=== PATIENT | female | born 1950 | race Caucasian/White ===

== ENCOUNTER 2018-09-19 01:16 | Outpatient (CLI) | payer MEDICARE, OTHER, SELFPAY ==
--- NOTE | 2018-09-19 14:25 | DI.RAD_ITS ---
SYMPTOMS/DIAGNOSIS: SCREENING FOR OSTEOPOROSIS IN MENOPAUSAL WOMAN, Z78.0 DEXA SCAN WITH TO: There are no prior comparison exams. The TO image shows no evidence of compression fractures. The bone mineral density measurements correspond to a total T score of -0.9, in the normal range. The bone mineral density measurements of the left hip correspond to a total T score of -0.7. The femoral neck T score is -1.3, in the mildly osteopenic range. The bone mineral density measurements of the left forearm correspond to a total T score of -2.3 and a T score in the distal third of -1.9, consistent with osteopenia. IMPRESSION: Osteopenia of the left hip and left forearm. Normal bone mineral density of the lumbar spine.
--- NOTE | 2018-09-19 15:17 | DI.MAMMO_ITS ---
SYMPTOMS/DIAGNOSIS: SCREENING BILATERAL SCREENING MAMMOGRAM: Mammograms were interpreted according to the usual protocol including computer analysis with CAD system, tomosynthesis and C view imaging. Comparison is made with exams from 2014 through 2017. The breasts are composed of heterogeneously dense fibroglandular tissue, breast density category C. No suspicious masses or suspicious microcalcifications are seen. There has been no significant change. IMPRESSION: Category 1C, negative mammogram. Yearly screening mammography is recommended. [facility] ASSESSMENT OF FINDINGS: Negative. Category 1. Patient will receive a letter notifying them of these results. Bi-RADS category C. The breasts are heterogeneously dense, which may obscure small masses.
== END 2018-09-19 01:36 ==
PROVIDERS: Visit Provider Obstetrics & Gynecology
DX: Z12.31 Encounter for screening mammogram for malignant neoplasm of breast (principal); M85.88 Other specified disorders of bone density and structure, other site; Z78.0 Asymptomatic menopausal state
CPT/HCPCS: 77063; 77067; 77080

== ENCOUNTER 2019-10-23 01:23 | Outpatient (CLI) | payer MEDICARE, OTHER, SELFPAY ==
--- NOTE | 2019-10-23 16:15 | DI.MAMMO_ITS ---
EXAM: MAMMO SCREENING CLINICAL HISTORY: SCREENING, Z12.31 TECHNIQUE: Mammograms were interpreted according to the usual protocol including computer analysis w [employer] CAD system, tomosynthesis and C-view imaging. COMPARISON: FINDINGS: The breasts are heterogeneously dense. No dominant mass or clumped microcalcification is identified in either breast. Current examination is compared with previous examinations including August 2018 and there has been no gross interval change in appearance comparison with previous studies. Conclus ion no specific evidence of malignancy at this time. Routine screening examinations are suggested at yearly intervals due to the family history of breast carcinoma. IMPRESSION: Category 1 breast density category C
== END 2019-10-23 01:43 ==
PROVIDERS: PCP Family Medicine; Visit Provider Family Medicine
DX: Z12.31 Encounter for screening mammogram for malignant neoplasm of breast (principal); R92.8 Other abnormal and inconclusive findings on diagnostic imaging of breast
CPT/HCPCS: 77063; 77067

== ENCOUNTER 2020-11-06 01:31 | Outpatient (CLI) | payer MEDICARE, OTHER, SELFPAY ==
--- NOTE | 2020-11-06 | DI.MAMMO_ITS ---
EXAM: MG MAMMO SCREENING CLINICAL HISTORY: SCREENING, Z12.31 TECHNIQUE: Mammograms were interpreted according to the usual protocol including computer analysis w [employer] CAD system, tomosynthesis and C-view imaging. COMPARISON: FINDINGS: The breasts are heterogeneously dense. No dominant mass or clumped microcalcification is identified in either breast. The current examination is compared with previous examinations including September 2019 and there has been no gross interval change in appearance in comparison with the prior studies. IMPRESSION: No specific evidence of malignancy at this time. Routine screening examinations are suggested at yea rly intervals due to the family history of breast carcinoma. BI-RADS Category 1 - Negative Breast Density - Category C - Heterogeneously dense
== END 2020-11-06 01:51 ==
PROVIDERS: PCP Family Medicine; Visit Provider Obstetrics & Gynecology
DX: Z12.31 Encounter for screening mammogram for malignant neoplasm of breast (principal); Z80.3 Family history of malignant neoplasm of breast
CPT/HCPCS: 77063; 77067

== ENCOUNTER 2021-06-12 10:39 | Outpatient (CLI) | payer MEDICARE, OTHER, SELFPAY ==
--- NOTE | 2021-06-12 09:15 | DI.RAD_ITS ---
Exam(s) XR KNEE RT 3V AP,LAT,CARINA EXAM: XR KNEE RT 3V AP,LAT,CARINA CLINICAL HISTORY: pain limited motion. TECHNIQUE: 2D digital imaging was performed. COMPARISON: No previous for comparison. FINDINGS: BONES: No acute fracture is present. No bony destructive lesion is seen. JOINTS: The patient has a right total knee replacement. No evidence of hardware failure. No joint e ffusion is seen. SOFT TISSUE: Normal. IMPRESSION: Right total knee replacement. DATA REPOSITORY: RADIATION DOSE DELIVERED:
== END 2021-06-12 10:40 | disposition home or self-care (01) ==
LOC: DIORS 10:39
PROVIDERS: PCP Family Medicine; Referring Provider Family Medicine; Visit Provider Student in an Organized Health Care Education/Training Program
DX: T84.84XA Pain due to internal orthopedic prosthetic devices, implants and grafts, initial encounter (principal); Z96.659 Presence of unspecified artificial knee joint; Z96.651 Presence of right artificial knee joint; M25.561 Pain in right knee
CPT/HCPCS: 73562; 99203

== ENCOUNTER → 2022-10-19 01:59 | Outpatient (CLI) | payer MEDICARE, OTHER, SELFPAY ==
--- NOTE | 2022-10-19 | DI.MAMMO_ITS ---
Exam(s) MAMMO SCREENING EXAM: MAMMO SCREENING CLINICAL HISTORY: SCREENING, Z12.31. TECHNIQUE: Bilateral full field digital CC and MLO mammographic images were obtained with 3D tomosyn thesis and utilizing computer aided detection (CAD). COMPARISON: Prior mammograms were reviewed. FINDINGS: There has been no significant change in the appearance and distribution of the fibroglandular tissue. There are no new spiculated masses nor malignant appearing microcalcification groups. There is no significant architectural distortion nor skin thickening-retraction. IMPRESSION: No radiographic evidence of malignancy. BI-RADS Category 1 - Negative Breast Density - Category C - Heterogeneously dense Breast density Category C or D implies that the patient has dense breast tissue. Dense breast tissue can make it harder to find cancer on a mammogram. Dense breast tissue is also associated with an incr eased risk of breast cancer. This information about the result of the mammogram report was provided to the patient to raise their awareness. Use this report when you speak with the patient about their risks for breast cancer, which includes their family history. At that time, you may recommend additional screening tests (Ultrasoun d or MRI) as these tests may add significant information. A negative radiographic report should not delay biopsy if a dominant or clinically suspicious mass is present. Up to ten percent of cancers are not identified on mammography. A negative report may reinforce clinical impression. Adenosis and dense breasts may obscure an underlying neoplasm. False positive reports average 6 to 10%. Patient will receive a letter notifying them of these results.
== END ==
PROVIDERS: PCP Family Medicine; Visit Provider Family Medicine
DX: Z12.31 Encounter for screening mammogram for malignant neoplasm of breast (principal); R92.8 Other abnormal and inconclusive findings on diagnostic imaging of breast
CPT/HCPCS: 77063; 77067

== ENCOUNTER 2023-03-09 10:37 | Outpatient (REF) | payer MEDICARE, SELFPAY ==
[2023-04-07 10:48] LABS: Fungus Smear No Fungi Seen
== END 2023-03-09 10:38 | disposition home or self-care (01) ==
LOC: NCHCN 10:37
PROVIDERS: PCP Family Medicine; Visit Provider Family Medicine
DX: R23.9 Unspecified skin changes (principal)
CPT/HCPCS: 87102; 87206

== ENCOUNTER 2023-04-13 09:23 | Outpatient (REF) | payer MEDICARE, SELFPAY ==
[2023-04-13 14:41] LABS: Anion Gap 5.6 mmol/L (3-11); BUN 20 mg/dL (7-18); CO2 29.4 mmol/L (21.0-32.0); CREATININE 0.8 mg/dL (0.55-1.02); Calcium 8.8 mg/dL (8.5-10.1); Calculated LDL 134 mg/dL (<100); Chloride 105 mmol/L (98-107); Cholesterol 210 mg/dL (<200); Estimated GFR 77.27 (mL/min/1.73m2); Glucose 132 mg/dL (74-106); HDL Cholesterol 58 mg/dL (40-60); Potassium 4.6 mmol/L (3.5-5.1); Sodium 140 mmol/L (136-145); Triglyceride 91 mg/dL (<150)
[2023-04-13 15:35] LABS: Hemoglobin A1C 6.4 % (<5.7)
== END 2023-04-13 09:24 | disposition home or self-care (01) ==
LOC: NCHCN 09:23
PROVIDERS: PCP Family Medicine; Visit Provider Family Medicine
DX: R73.01 Impaired fasting glucose (principal); E78.5 Hyperlipidemia, unspecified
CPT/HCPCS: 80048; 80061; 83036

== ENCOUNTER → 2023-05-09 13:38 | Outpatient (BNVA) | payer MEDICARE, SELFPAY | PROVIDERS: PCP Family Medicine; Referring Provider Family Medicine; Visit Provider Student in an Organized Health Care Education/Training Program | DX: Z47.1 Aftercare following joint replacement surgery (principal); Z96.651 Presence of right artificial knee joint | CPT/HCPCS: 99214 ==

== ENCOUNTER 2023-05-25 09:45 | Day surgery (SDC) | payer MEDICARE, SELFPAY ==
[2023-05-25] VITALS (9 sets, daily range): BP systolic 92–132; BP diastolic 46–78; PULSE 50–58; RESP 14–18; TEMP 36.1–36.6; O2SAT 94–98; BMI 27.9
--- NOTE | 2023-05-25 09:23 | ANES.PREOP_ITS ---
General Info Date of Service Date Performed: 05/25/23 Height: 5 ft 4 in Weight: 73.936 kg Body Mass Index (BMI): 27.9 Surgical Procedure: Operation Date: 05/25/23 11:55 Proposed Procedure Side Surgeon p Knee Arthroscopy Synovectomy Right Pj Peña MD Meds Allergies and Home Medications Allergies Allergy/AdvReac Type Severity Reaction Status Date / Time cat dander Allergy sneeze Verified 05/25/23 10:18 mold Allergy sneeze Verified 05/25/23 10:18 morphine Allergy itch Verified 05/25/23 10:18 wasp Allergy Severe Other (See Uncoded 05/25/23 10:18 Comment) Home Medication Medication Instructions Recorded calcium carbonate 500 mg-vitamin 1 ea PO DAILY 04/20/18 D3 5 mcg (200 unit) tablet (Os-Feliciano 500 + D3) citalopram 10 mg tablet (Celexa) 10 mg PO DAILY 04/20/18 glucosamine 1 ea PO DAILY 04/20/18 sulfate-methylsulfonylmethane 250 mg-250 mg capsule multivitamin (Daily Multiple 1 ea PO DAILY 04/20/18 tablet) acetaminophen 500 mg capsule 500 mg PO Q6H PRN 06/12/21 diphenhydramine 25 1 tab PO QHS PRN 06/12/21 mg-acetaminophen 500 mg tablet (Tylenol PM Extra Strength) atorvastatin 10 mg tablet (Lipitor) 20 mg PO DAILY 05/09/23 esmtukr-gonvmkiad-ofzbyc-QFS-ymwlr-sdkx-150hb 1 tab PO DAILY 05/09/23 250 mg-250 mg-120 mg tab trazodone 50 mg tablet 50 mg PO QHS PRN 05/09/23 Current Visit Medications: Current Medications Generic Name Dose Route Start Last Admin Trade Name Freq PRN Reason Stop Dose Admin Acetaminophen 1,000 mg 05/25/23 06:00 Acetaminophen 500 Mg Tab PO 05/25/23 16:00 PREOP TREV Celecoxib 400 mg 05/25/23 06:00 Celecoxib 200 Mg Cap PO 05/25/23 16:00 PREOP TREV Gabapentin 300 mg 05/25/23 06:00 Gabapentin 300 Mg Cap PO 05/25/23 16:00 PREOP TREV Ringer's Solution 1,000 mls @ 80 mls/hr 05/25/23 06:00 IV 06/23/23 23:59 INFUSION TREV Cefazolin Sodium/Dextrose 2 gm in 50 mls @ 100 mls/hr 05/25/23 06:00 Ancef Duplex IVPB 05/25/23 16:00 PREOP TREV IV Miscellaneous Supplies 1 each 05/25/23 06:00 Iv Access IV 06/23/23 23:59 DIRECTED TREV Sodium Chloride 0 ml 05/25/23 06:00 Normal Saline Flush 10 Ml Syr IV 06/23/23 23:59 PRN PRN Sodium Chloride 0 ml 05/25/23 06:00 Normal Saline 10 Ml Vial IJ 06/23/23 23:59 DIRECTED PRN Sterile Water 0 ml 05/25/23 06:00 Water,Injection,Sterile 10 Ml Vial IJ 06/23/23 23:59 DIRECTED PRN PFSH Active Problems Active Problems: Problem Status Onset Code History of total right knee replacement Z96.651 Crepitus of joint of right knee M23.8X1 Painful total knee replacement, right T84.84XA, Z96.651 Medical History Medical History (Updated 05/24/23 @ 11:47 by Ishmael Jorgensen) Depression High cholesterol Prediabetes Surgical History Surgical History (Updated 05/25/23 @ 10:18 by Marybel Easley RN) History of urologic surgery Aditya-Edwar Procedure Hx of elbow surgery right Hx of total knee arthroplasty right Hx of total knee arthroplasty Left Hx of tubal ligation Tobacco Smoking/Tobacco Use Status: Former Tobacco Use Alcohol Alcohol Intake: current Alcohol intake frequency: 0-2 drinks per day Alcohol t ype: wine Substance Use Substance use: Never Substance use type: does not use Vital Signs and Lab Results Lab Results Blood Type / Crossmatch: No Data to Display Complete Blood Count: No Data to Display Complete Metabolic Panel: No Data to Display Liver Function Panel: No Data to Display Coagulation Panel: No Data to Display Cardiac Panel: No Data to Display Arterial Blood Gas: No Data to Display Venous Blood Gas: No Data to Display Pancreas Panel: No Data to Display Thyroid Panel: No Data to Display Infectious Disease: No Data to Display Blood Cultures: No Data to Display Toxicology Panel: No Data to Display Anesthesia Assessment and Plan Anesthesia History Personal History: No History of Anesthesia Complications Family History: No Family History of Anesthesia Complications Exercise Tolerance Exercise Tolerance: Metabolic Equivalents>4 Cardiac & Pulmonary Exam Cardiac Exam: Normal S1/S2 Heart Sounds Pulmonary Exam: Clear Bilateral Breath Sounds Implantable Cardiac Device Does patient have a Pacemaker or an ICD?: No Airway Exam Known Difficult Airway: No Mallampati Class: 3 Mouth Opening: Narrow (< 3cm) Thyromental Distance: Greater than 3 cm Neck Range of Motion: Full ROM Neck Circumference: Normal Teeth Condition: Normal Dentition ASA Classification ASA Score: ASA 2 Emergency Case?: No NPO Status NPO Status: NPO Clears >2 hours, Solids >8 hours Anesthesia Plan Resuscitation Status: Full Code Anesthesia Technique: General Anesthesia Airway Planned: LMA Monitors Used: Standard Monitors Preoperative Comments:: 73 yo female for knee scope. Sig PMHx: preDM (last A1c 6.4%), depression (citalopram), former smoker 10/1972,
[2023-05-25] MEDS: Lactated Ringers 1,000 ML 80 ML IV (10:19)
[2023-05-25] MEDS: Acetaminophen 500 MG TAB 1000 MG PO (10:23)
[2023-05-25] MEDS: Gabapentin 300 MG CAP PO (10:23)
--- NOTE | 2023-05-25 10:51 | W.PREOPHP ---
Assessment and Plan Assessment and plan (1) History of total right knee replacement: Status: Acute (2) Painful total knee replacement, right: Status: Acute (3) Crepitus of joint of right knee: Status: Acute Assessment and plan: Kely is an active 73-year-old female with ongoing pain, crepitus, stiffness about the right knee after knee replacement. She is here today for knee arthroscopic synovectomy. I reviewed this once with her already. I once again discussed that to include technical features as well as the risk, not limited to continued symptoms, recurrence, infection. Despite these risk, she elects to proceed. History of Present Illness History of Present Illness Chief Complaint: Right knee arthrofibrosis and pain Narrative: Kely is a 73-year-old female who has ongoing pain and stiffness about the right knee after bilateral knee replacement performed the [facility]. Please see the previous office note for complete detailed history. She is here today for arthroscopic synovectomy. She reports no changes to her medical history. No chest pain or shortness of breath. Review of Systems All systems reviewed & are unremarkable except as noted in HPI and below PFSH All Active Problems History of total right knee replacement (Acute) Crepitus of joint of right knee (Acute) Painful total knee replacement, right (Acute) Medical History Depression High cholesterol Prediabetes Surgical History History of urologic surgery Aditya-Edwar Procedure Hx of elbow surgery right Hx of total knee arthroplasty right Hx of total knee arthroplasty Left Hx of tubal ligation Social History Smoking/Tobacco Use Status: Former Tobacco Use Quit Date: 10/24/72 Smoking risk assessment performed?: Yes Alcohol Intake: current Alcohol Intake frequency: 0-2 drinks per day Alcohol type: wine Drug use: Never Substance use type: does not use Housing: house Do you feel safe at home: Yes Do you feel safe in your relationship?: Yes Meds Allergies and Home Medications Allergies Allergy/AdvReac Type Severity Reaction Status Date / Time cat dander Allergy sneeze Verified 05/25/23 10:18 mold Allergy sneeze Verified 05/25/23 10:18 morphine Allergy itch Verified 05/25/23 10:18 wasp Allergy Severe Other (See Uncoded 05/25/23 10:18 Comment) Home Medications Medication Instructions Recorded Confirmed Type calcium carbonate 500 mg-vitamin 1 ea PO DAILY 04/20/18 05/25/23 History D3 5 mcg (200 unit) tablet (Os-Feliciano 500 + D3) citalopram 10 mg tablet (Celexa) 10 mg PO DAILY 04/20/18 05/25/23 History glucosamine 1 ea PO DAILY 04/20/18 05/25/23 History sulfate-methylsulfonylmethane 250 mg-250 mg capsule multivitamin (Daily Multiple 1 ea PO DAILY 04/20/18 05/25/23 History tablet) acetaminophen 500 mg capsule 500 mg PO Q6H PRN 06/12/21 05/24/23 History diphenhydramine 25 1 tab PO QHS PRN 06/12/21 05/25/23 History mg-acetaminophen 500 mg tablet (Tylenol PM Extra Strength) atorvastatin 10 mg tablet (Lipitor) 20 mg PO DAILY 05/09/23 05/25/23 History litijmc-qeeirqzgi-bjzhcy-DCX-zihaf-gboa-150hb 1 tab PO DAILY 05/09/23 05/25/23 History 250 mg-250 mg-120 mg tab trazodone 50 mg tablet 50 mg PO QHS PRN 05/09/23 05/25/23 History Exam Resp Effort & Inspection: normal respiratory effort Auscultation: clear to auscultation bilaterally Cardio Rate: regular rate Rhythm: regular rhythm Results Last Vital Signs Temp 36.6 C 05/25/23 10:03 Pulse 58 L 05/25/23 10:03 Resp 16 05/25/23 10:03 BP 132/76 05/25/23 10:03 Pulse Ox 98 05/25/23 10:03
[2023-05-25] MEDS: Celecoxib 200 MG CAP 400 MG PO (10:58)
--- NOTE | 2023-05-25 11:19 | PDOC.DSDIS_ITS ---
Date of service: 05/25/23 Time of Service: 11:19 Discharge Plan Disposition Patient Disposition: Home Condition: Good Discharge Details Reason For Visit: R knee arthroscopy Attending Provider: Pj Peña Primary Care Provider: Alexa Riojas Home Meds and New Rx's Prescriptions: New hydrocodone-acetaminophen 5-325 mg tablet 1 tab PO Q6H PRN (Reason: pain) Qty: 6 0RF acetaminophen 500 mg tablet 1,000 mg PO TID Qty: 90 0RF ibuprofen 600 mg tablet 600 mg PO TID PRN (Reason: pain) Qty: 90 0RF Continued trazodone 50 mg tablet 50 mg PO QHS PRN fbrd-ir-tgk-ZYJ-acpo-bbw-150hb 250-250-120 mg tablet 1 tab PO DAILY multivitamin [Daily Multiple] 1 EACH tablet 1 ea PO DAILY citalopram [Celexa] 10 MG tablet 10 mg PO DAILY calcium carbonate-vitamin D3 [Os-Feliciano 500 + D3] 1 EACH tablet 1 ea PO DAILY glucosamine sulfate-msm 1 EACH capsule 1 ea PO DAILY atorvastatin [Lipitor] 10 mg tablet 20 mg PO DAILY Discontinued acetaminophen 500 mg capsule 500 mg PO Q6H PRN diphenhydramine-acetaminophen [Tylenol PM Extra Strength] 25-500 mg tablet 1 tab PO QHS PRN Discharge Instructions Stand Alone Forms: Anesthesia Discharge Inst., Johnny Escobedo ([facility]), [facility] Knee Arthroscopy Referrals: Pj Peña MD [ [facility]] - 06/06/23 1:15 pm Equipment/Supplies: Partial Weight Bearing Crutches Activity:: Activity as Tolerated Remove Dressings/Wound Care:: 72 hours Shower/Bathe:: 72 hours Diet:: As Tolerated Discharge Orders Discharge Orders: Discharge Order (Routine); Ordered 05/25/23 Ordered By: Ajay Sosa DS: Diagnosis Discharge Diagnosis (1) History of total right knee replacement: Status: Acute (2) Painful total knee replacement, right: Status: Acute (3) Crepitus of joint of right knee: Status: Acute
[2023-05-25] MEDS: ceFAZolin 2 GM/50 ML BAG IVPB (11:24)
[2023-05-25] MEDS: EPINEPHrine 30 MG/30 ML VIAL (11:50)
[2023-05-25] MEDS: Bupivacaine 0.5% Pres-Free 30 ML VIAL (11:51)
[2023-05-25] MEDS: fentaNYL 100 MCG/2 ML VIAL IVP (12:44)
--- NOTE | 2023-05-25 13:29 | W.ANESPOSTOP ---
Postoperative Evaluation Date, Time and Location Date Performed: 05/25/23 Time Performed: 13:38 Patient Location: Day Surgery Unit Vital Signs Most Recent Imported Vital Signs: Most Recent Vital Signs Temp Pulse Resp BP Pulse Ox 36.2 C L 52 L 16 132/75 94 05/25/23 13:12 05/25/23 13:12 05/25/23 13:12 05/25/23 13:12 05/25/23 13:12 Pain Score Most Recent Pain Score: Most Recent Pain Score Pain Level 2 05/25/23 13:12 Assessment Mental Status: Awake (Alert & Oriented to Patient Baseline) Airway and Respiratory Function: Patent airway with normal (patient baseline) respiratory exam Cardiovascular Function: Hemodynamically Stable Hydration Status: Adequately Hydrated Nausea & Vomiting: No Nausea or Vomiting Pain: Pain is tolerable per patient Peripheral Nerve Block: Patient did not receive a nerve block
--- NOTE | 2023-05-25 16:26 | ROE_ITS ---
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 Nonoperative measures were exhausted but disability due to lack of motion persisted. I discussed knee arthroscopy with synovectomy with maniuplation with the patient. I reviewed the risks of the procedure to include, but not limited to, bleeding, infection, pain, continued stiffness, recurrence, blood clot. Despite these risks, the patient elected to proceed. Findings: There is abundant scar tissue seen throughout the knee. There was some pedunculated scar tissue adhesions seen around the patella which were easily displaced with and without the patellar femoral joint. Additionally, there were dense adhesions seen within the suprapatellar pouch. Additionally over the medial and lateral aspect of the knee there was some interposed soft tissue. Procedure Description: Kely was greeted in the preoperative holding area where the correct side was identified and marked. The consent was reviewed with the patient and signed. The history and physical was updated. All questions were answered. She was taken back to the operating room. The patient was placed into the supine position on the operating room table. All bony prominences were well padded. Prophylactic antibiotics in the form of Cefazolin were administered. The right leg was then prepped with Chloraprep and draped in a standard fashion with stockinette and extremity drape. A timeout to confirm correct identity, side and site, procedure, allergies, anesthesia, and medical concerns was performed. The leg was placed into a pneumatic leg miller, [id number]. A standard lateral portal was made at the lateral border of the patella tendon in line with the inferior pole of the patella, soft spot. The skin and deep tissue was incised sharply and the blunt trochar was inserted atraumatically. At this point had visualization of the femoral component. A superolateral portal was then established with spinal needle localization just superior and lateral to the patella. A knife was taken down through the skin and soft tissue to enter the knee joint. Immediately there was notable scar tissue seen around the patella with pedunculated tissue adjacent patella which was easily displaced into the patellofemoral joint. Starting in the superior compartment above the femoral component and anterior to the femur I released all scarring between the anterior femoral synovium and the overlying extensor mechanism. This was taken through all of any noticeable scar tissue until the superior patellar pouch was fully released and mobile. This resection was carried out mostly with electrocautery as well as shaver. In doing this release there was a very tight band of scar tissue which was seen from the suprapatellar pouch extending to the medial gutter. This was released and resected. Once this was released fully from lateral to medial superiorly I then continue working down the lateral gutter. All scar tissue in the lateral gutter was released so there is normal space and movement between the capsular tissues and the edge of the femoral component and femur. This was taken down through the lateral gutter such that I was able to identify the polyethylene to its posterior corner. Once again, all scar tissue in this area was resected so the polyethylene was easily visible and there is no interposed tissue in the back or the polyethylene was identified. There was notable scar tissue in this region which was interposed into the joint space. I then continue to work anteriorly. To continue the synovectomy from the lateral compartment to the anterior compartment into the medial compartment, I placed a medial portal under spinal needle localization. Once this was in place it became another working portal and I continued the synovectomy through the anterior compartment to the medial compartment. Once again, I freed up the medial gutter so I was able to visualize the polyethylene from the anterior posterior margins as there was notable bands of scar tissue seen interposed between the femoral component and the polyethylene. There is no interposed tissue after full synovectomy was performed. Adhesions between the capsule and the femur were released. This was continued up the medial gutter until it met u p with the releases performed previously in the superior compartment. Any remnant scar tissue from around the patella was then removed with a shaver and electrocautery. The arthroscope was brought back into the suprapatellar pouch and the leg was in full extension. The knee was thoroughly irrigated with the arthroscopic fluid on high flow and pressure. Inflow was stopped and excess fluid was removed. The wounds were closed with 4-0 Nylon. 0.25% ropivacaine was injected around the portal sites and into the knee. The wounds were dressed with Xeroform, 4x4 gauze, ABD pad, Kerlix and an STEPHANIE wrap. A cryo-cuff was applied. The patient tolerated the procedure well and was returned to the Same Day Surgery area in a stable condition suffering no known complication..
== END 2023-05-25 14:35 | disposition home or self-care (01) ==
PROVIDERS: PCP Family Medicine; Visit Provider Student in an Organized Health Care Education/Training Program
PROC: (CPT 29870; principal; 2023-05-25 11:45)
DX: Z96.651 Presence of right artificial knee joint (principal); T84.84XA Pain due to internal orthopedic prosthetic devices, implants and grafts, initial encounter; R73.03 Prediabetes
CPT/HCPCS: 29876; J0131; J0690; J1100; J1885; J2001; J2405; J2704; J3010

== ENCOUNTER → 2023-06-06 13:12 | Outpatient (BNVA) | payer MEDICARE, SELFPAY | PROVIDERS: PCP Family Medicine; Referring Provider Family Medicine | DX: Z47.89 Encounter for other orthopedic aftercare (principal); M23.8X1 Other internal derangements of right knee; T84.84XA Pain due to internal orthopedic prosthetic devices, implants and grafts, initial encounter; Z96.651 Presence of right artificial knee joint ==

== ENCOUNTER 2023-11-02 10:45 | Outpatient (REF) | payer MEDICARE, SELFPAY ==
[2023-10-28 17:02] LABS: Calculated LDL 135 mg/dL (<100); Cholesterol 226 mg/dL (<200); HDL Cholesterol 72 mg/dL (40-60); Hemoglobin A1C 6.6 % (<5.7); Triglyceride 97 mg/dL (<150)
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
== END 2023-11-02 10:46 | disposition home or self-care (01) ==
LOC: NCHCN 10:45
PROVIDERS: PCP Family Medicine; Visit Provider Family Medicine
DX: E78.5 Hyperlipidemia, unspecified (principal); R73.01 Impaired fasting glucose
CPT/HCPCS: 80053; 80061; 83036

== ENCOUNTER 2023-11-18 15:01 | Outpatient (CLI) | payer MEDICARE, SELFPAY ==
[2023-11-18 14:40] LABS: ALT 30 U/L (14-59); AST 18 U/L (15-37); Albumin 3.2 g/dL (3.4-5.0); Alkaline Phosphatase 55 U/L (46-116); Anion Gap 7.1 mmol/L (3-11); BUN 19 mg/dL (7-18); Bilirubin, Total 0.8 mg/dL (0.2-1.0); CO2 28.9 mmol/L (21.0-32.0); CREATININE 0.8 mg/dL (0.55-1.02); Calcium 8.9 mg/dL (8.5-10.1); Chloride 106 mmol/L (98-107); Estimated GFR 76.79 (mL/min/1.73m2); Glucose 156 mg/dL (74-106); Potassium 4.1 mmol/L (3.5-5.1); Sodium 142 mmol/L (136-145); Total Protein 6.4 g/dL (6.4-8.2)
--- OUTSIDE RECORDS SUMMARY | 2023-11-18 15:03 | XMS_ITS | Continuity of Care Document ---
Author Name Unknown Address [address] [place] [address] Phone [facility] Address [address] [place] [address] Phone Care Team Providers Care Carbonator Name Role Phone UNKNOWN Attending Provider MD Alexa Salinas Primary Care Provider DENG Hickey Attending Provider Care Teams Patient Care Team Team Status: Active Member Role Status Dates Alexa Riojas MD Primary Care Provider Active Patient Care Team Team Status: Active Member Role Status Dates UNKNOWN Attending Provider Active Start: Mani hoover 2023 Patient Care Team Team Status: Inactive Member Role Status Dates Alexa Riojas MD Primary Care Provide r, Referring Provider Active Start: November 18, 2023 End: November 18, 2023 Ingris Hickey DPM Attending Provider Active Start: November 18, 2023 End: November 18, 2023 Chief Complaint and Reason for Visit Chief Complaint other hammer toes Allergies, Adverse Reactions, Alerts Allergen Type Severity Reaction Last Updated Verified Status morphine Allergy Unknown Unknown November 18, 2023 11:18am Yes Active Social History Smoking Status Status Start Date End Date Date of Observa tion Unknown if ever smoked Janua ry 2023 11:22am Additional Data Assigned Sex Female Problems Active Problems Medical Problem Onset Date Status Acquired hammer toe of right foot Active Medications Medication Status Dose Units Route Directions Qty Days St art Date End Date Instructions Citalopram (Celexa) 10 mg tablet Active 10 MG PO daily November 18, 2023 12:00am Atorvastatin (Lipitor) 20 mg tablet Active 20 MG PO daily November 18, 2023 12:00am Vital Signs Vital Reading Result Reference Range Collection Date/Time Height 64 [in_i] November 18 024 11:30am Weight 168.12 [lb_av] November 18, 2023 11:30am Body Temperature 97.8 [degF] 97.6-99.6 October 11:30am Heart Rate 65 /min 60-100 November 18, 024 11:30am Oxygen saturation by Pulse oximetry 98 % 92-100 November 18, 2023 1 1:30am BP Systolic 115 mm[Hg] 90-130 November 18, 2 024 11:30am BP Diastolic 73 mm[Hg] 70-80 November 18, 2 024 11:30am BMI (Body Mass Index) 28.8 kg/m2 y 2023 11:30am Insurance Providers Guarantor CONNOR VIDES Address [address] [place] [address] Contact Info. Home Phone: Payer Policy Id Coverage Id Subscriber's Name Subscriber Id Effective Date Expiration Date MEDICARE ADVANTAGE UNITED [id number] CONNOR VIDES [id number] [facility] [id number] CONNOR VIDES [id number] Encounters Encounter Location(s) Arrival/Admit Date Discharge/Depart Date Provider(s) Non[facility]patient [facility] November 16, 2023 11:59pm Unknown Departed Physician/Prov ider [facility] November 18, 2023 10:56am November 18, 2023 11:49am Ingris Hickey DPM
== END 2023-11-18 15:02 | disposition home or self-care (01) ==
LOC: LBO 15:02
PROVIDERS: PCP Family Medicine; Visit Provider Family Medicine
DX: E11.9 Type 2 diabetes mellitus without complications (principal)
CPT/HCPCS: 36415; 80053

== ENCOUNTER → 2023-12-09 00:56 | Outpatient (CLI) | payer MEDICARE, SELFPAY ==
--- NOTE | 2023-12-09 13:30 | DI.MAMMO_ITS ---
Exam(s) MAMMO SCREENING EXAM: MAMMO SCREENING CLINICAL HISTORY: SCREENING FOR BREAST CANCER Z12.31 TECHNIQUE: Bilateral full field digital CC and MLO mammographic images were obtained with 3D tomosyn thesis and utilizing computer aided detection (CAD). COMPARISON: Available for comparison. FINDINGS: Masses/Architectural Distortion: The patient has had a prior right breast biopsy. No suspicious mass es or areas of architectural distortion are seen. Microcalcifications: No suspicious pleomorphic-type are seen. Skin Thickening/Nipple Retraction: None. IMPRESSION: 1. No significant interval change with no specific features of malignancy noted. 2. Unless there is more urgent need, screening mammography is recommended, as per [place] [employer] guidelines. BI-RADS Category 1 - Negative Breast Density - Category C - Heterogeneously dense Breast density category C or D implies that the patient has dense breast tissue. Dense breast tissue is very common and is not abnormal but dense breast tissue can make it harder to find cancer on a ma mmogram. Also, dense breast tissue may increase their breast cancer risk. This information about the result of the mammogram report was provided to the patient to raise their awareness. Use this report when you speak with the patient about their risks for breast cancer, which includes their family hist ory. At that time, you may recommend for more screening tests (Ultrasound or MRI) as they might be us eful based on their risk. A negative radiographic report should not delay biopsy if a dominant or clinically suspicious mass is present. Up to ten percent of cancers are not identified on mammography. A negative report may reinforce clinical impression. Adenosis and dense breasts may obscure an underlying neoplasm. False positive reports average 6 to 10%. Patient will receive a letter notifying them of these results.
--- NOTE | 2023-12-09 13:50 | DI.DEXA_ITS ---
Exam(s) XR DEXA BONE DENSITY W/WO TO EXAM: XR DEXA BONE DENSITY W/WO TO CLINICAL HISTORY: OSTEOPOROSIS M81.0 TECHNIQUE: COMPARISON: DX XR DEXA BONE DENSITY W/WO TO from 09/19/2018 FINDINGS: Lateral Spine Image: Unremarkable. No compression deformities identified. Left hip: Total T-Score: -0.9. This compares to -0.7 on the prior examination. Total Z-Score: 1.0 T- and Z-scores: Within normal limits. No evidence of osteoporosis. Lumbar Spine: Total T-Score: -0.6. This compares to -0.9 on the prior examination. Total Z-Score: 1.9 T- and Z-scores: Within normal limits. No evidence of osteoporosis. IMPRESSION: No evidence of osteoporosis.
== END ==
PROVIDERS: PCP Family Medicine; Visit Provider Family Medicine
DX: M81.0 Age-related osteoporosis without current pathological fracture (principal); Z13.820 Encounter for screening for osteoporosis; Z12.31 Encounter for screening mammogram for malignant neoplasm of breast
CPT/HCPCS: 77063; 77067; 77080

== ENCOUNTER → 2024-03-20 13:25 | Outpatient (CLI) | payer MEDICARE, SELFPAY ==
--- NOTE | 2024-03-20 | DI.RAD_ITS ---
Exam(s) XR FOOT LT COMPLETE EXAM: XR FOOT LT COMPLETE CLINICAL HISTORY: M19.079 Foot Arthropathy,M20.5X2 contracture of toe lt foot,M20.41,M2042. TECHNIQUE: 2D digital imaging was performed of the left foot. Three images were obtained. AP, obli que and lateral views were obtained. COMPARISON: No exams were available for comparison FINDINGS: BONES: No acute fracture is present. No bony destructive lesion is seen. JOINTS: No dislocation present. There are degenerative changes seen in the foot particularly at the 1 st metatarsophalangeal joint where there is joint space narrowing and osteophytes. SOFT TISSUE: Normal. IMPRESSION: Degenerative changes of the foot. DATA REPOSITORY: RADIATION DOSE DELIVERED:
== END ==
PROVIDERS: PCP Family Medicine; Visit Provider Podiatrist
DX: M19.072 Primary osteoarthritis, left ankle and foot (principal)
CPT/HCPCS: 73630

== ENCOUNTER 2024-03-26 08:45 | Outpatient (REF) | payer MEDICARE, SELFPAY ==
[2024-03-26 16:45] LABS: ALT 48 U/L (14-59); AST 24 U/L (15-37); Albumin 3.8 g/dL (3.4-5.0); Alkaline Phosphatase 58 U/L (46-116); BUN 16 mg/dL (7-18); CREATININE 0.7 mg/dL (0.55-1.02); Chloride 107 mmol/L (98-107); Estimated GFR 90.14 (mL/min/1.73m2); Glucose 122 mg/dL (74-106); Potassium 4.4 mmol/L (3.5-5.1); Sodium 144 mmol/L (136-145); Total Protein 6.5 g/dL (6.4-8.2)
[2024-03-26 16:52] LABS: Hemoglobin A1C 6.3 % (<5.7)
[2024-03-26 17:13] LABS: Calculated LDL 92 mg/dL (<100); Cholesterol 186 mg/dL (<200); HDL Cholesterol 70 mg/dL (40-60); Triglyceride 123 mg/dL (<150)
== END 2024-03-26 08:46 | disposition home or self-care (01) ==
LOC: NCHCN 08:45
PROVIDERS: PCP Family Medicine; Visit Provider Family Medicine
DX: E11.9 Type 2 diabetes mellitus without complications (principal)
CPT/HCPCS: 80053; 80061; 83036

== ENCOUNTER 2024-07-20 20:38 | Outpatient (REF) | payer MEDICARE, SELFPAY | END 2024-07-20 20:39 | disposition home or self-care (01) | LOC: LBN 20:38 | PROVIDERS: PCP Family Medicine; Visit Provider Nurse Practitioner Family | DX: N39.0 Urinary tract infection, site not specified (principal); B96.29 Other Escherichia coli [E. coli] as the cause of diseases classified elsewhere; R82.89 Other abnormal findings on cytological and histological examination of urine | CPT/HCPCS: 87077; 87086; 87186 ==

== ENCOUNTER 2025-06-06 10:21 | Outpatient (REF) | payer MEDICARE, SELFPAY ==
[2025-06-06 18:29] LABS: ALT 47 U/L (14-59); AST 26 U/L (15-37); Albumin 3.7 g/dL (3.4-5.0); Alkaline Phosphatase 62 U/L (46-116); Anion Gap 11.5 mmol/L (3-11); BUN 16 mg/dL (7-18); Bilirubin, Total 1.3 mg/dL (0.2-1.0); CO2 26.5 mmol/L (21.0-32.0); Calcium 8.9 mg/dL (8.5-10.1); Calculated LDL 127 mg/dL (<100); Chloride 104 mmol/L (98-107); Cholesterol 213 mg/dL (<200); Estimated GFR 75.84 (mL/min/1.73m2); Glucose 142 mg/dL (74-106); HDL Cholesterol 65 mg/dL (>or=50); Potassium 4.3 mmol/L (3.5-5.1); Sodium 142 mmol/L (136-145); Total Protein 6.7 g/dL (6.4-8.2); Triglyceride 107 mg/dL (<150)
[2025-06-06 18:42] LABS: COMMENT (LAB VIEW ONLY) 98.46 mg/dL; Microalb ug/mg Crea 5.6 ug/mg Cr
== END 2025-06-06 10:22 | disposition home or self-care (01) ==
LOC: NCHCN 10:21
PROVIDERS: PCP Family Medicine; Visit Provider Family Medicine
DX: E78.5 Hyperlipidemia, unspecified (principal); R73.03 Prediabetes
CPT/HCPCS: 80053; 80061; 82043; 82570

== ENCOUNTER 2025-08-15 09:15 | Outpatient (REF) | payer MEDICARE, SELFPAY ==
[2025-08-15 16:00] LABS: ALT 39 U/L (14-59); AST 22 U/L (15-37); Albumin 3.6 g/dL (3.4-5.0); Alkaline Phosphatase 59 U/L (46-116); Anion Gap 7.3 mmol/L (3-11); BUN 16 mg/dL (7-18); Bilirubin, Total 0.9 mg/dL (0.2-1.0); CO2 28.7 mmol/L (21.0-32.0); Calcium 8.6 mg/dL (8.5-10.1); Calculated LDL 105 mg/dL (<100); Chloride 104 mmol/L (98-107); Cholesterol 180 mg/dL (<200); Estimated GFR 89.02 (mL/min/1.73m2); Glucose 111 mg/dL (74-106); HDL Cholesterol 58 mg/dL (>or=50); Potassium 5.1 mmol/L (3.5-5.1); Sodium 140 mmol/L (136-145); Total Protein 6.6 g/dL (6.4-8.2); Triglyceride 85 mg/dL (<150)
== END 2025-08-15 09:16 | disposition home or self-care (01) ==
LOC: NCHCN 09:15
PROVIDERS: PCP Family Medicine; Visit Provider Family Medicine
DX: E78.5 Hyperlipidemia, unspecified (principal)
CPT/HCPCS: 80053; 80061

== ENCOUNTER → 2025-10-09 00:19 | Outpatient (CLI) | payer MEDICARE, SELFPAY ==
--- NOTE | 2025-10-09 | DI.MAMMO_ITS ---
Exam(s) MAMMO SCREENING EXAM: MAMMO SCREENING CLINICAL HISTORY: SCREENING MAMMO Z12.31 TECHNIQUE: Mammograms were interpreted according to the usual protocol including computer analysis with CAD system, tomosynthesis and C-view imaging. COMPARISON: 2015 through 2023 FINDINGS: The breasts are composed of heterogeneously dense fibroglandular densities, Breast Density category C. No suspicious masses or suspicious microcalcifications are seen. No skin thickening or abnormal axillary lymph nodes are seen. There has been no significant change from prior exams. IMPRESSION: BI-RADS Category 1, Negative mammogram. Yearly screening mammography is recommended. Breast Density: Category C - The breasts are heterogeneously dense, which may obscure small masses. Breast density Category C or D implies that the patient has dense breast tissue. Dense breast tissue can make it harder to find cancer on a mammogram. Dense breast tissue is also associated with an increased risk of breast cancer. This information about the result of the mammogram report was provided to the patient to raise their awareness. Use this report when you speak with the patient about their risks for breast cancer, which includes their family history. At that time, you may recommend additional screening tests (Ultrasound or MRI) as these tests may add significant information. A negative radiographic report should not delay biopsy if a dominant or clinically suspicious mass is present. Up to ten percent of cancers are not identified on mammography. A negative report may reinforce clinical impression. Adenosis and dense breasts may obscure an underlying neoplasm. False positive reports average 6 to 10%.
== END ==
PROVIDERS: PCP Family Medicine; Visit Provider Family Medicine
DX: Z12.31 Encounter for screening mammogram for malignant neoplasm of breast (principal); R92.323 Mammographic fibroglandular density, bilateral breasts
CPT/HCPCS: 77063; 77067